=== PATIENT | female | born 1970 | race Caucasian/White ===

== ENCOUNTER 2017-02-06 12:12 | Emergency (ER) | payer OTHER ==
[2017-02-06 12:24] VITALS: TEMP 98.1
--- NOTE | 2017-02-06 13:02 | EDPHY ---
H & P Stated Complaint: Tripped while hiking;obvious deformity L wrist Source: Patient Exam Limitations: No limitations - Personal History LMP (Females 10-55): 15-21 Days Ago Current Tetanus Diphtheria and Acellular Pertussis (TDAP): Yes - Medical/Surgical History Other PMH: MS - Social History Smoking Status: Never smoked Time Seen by Provider: 02/06/17 13:01 HPI/ROS: HPI: This is a 46-year-old female who presents with Chief Complaint:Tripped while hiking;obvious deformity L wrist Location: Left wrist Quality: injury Duration: 5 hours prior to arrival Signs and Symptoms: No bleeding, no radiation, no numbness, no weakness, no tingling, no incontinence, + decreased range of motion Timing: Acute Severity: 02/05 Context: Patient has a history of multiple sclerosis was hiking and while walking down hill, slipped on the gravel, and fell forward landing on her left wrist with immediate pain, feeling of a popping sensation and deformity noted to her left wrist. She had a hike [place] the mountain and drive herself to the ER which took 5 hours. She does not drink any water in this time. She complains of severe constant nonradiating pain in her left wrist. She denies any paresthesias/ numbness/discoloration of finger in her left hand. She is not on any blood thinners. Denies hitting her head/LOC/neck pain. Modifying Factors: None Comment: ROS: see HPI Constitutional: No fever, no chills, no weight loss Eyes: No blurred vision Respiratory: No shortness of breath, no cough Cardiovascular: No chest pain Gastrointestinal: No nausea, no vomiting no diarrhea Genitourinary: No dysuria Extremities: No myalgias Neurologic: No weakness, no numbness Skin: No rashes Hematologic: No bruising, no bleeding MEDICAL/SURGICAL/SOCIAL HISTORY: Social history: Unemployed. CONSTITUTIONAL: Pleasant, petite white adult female, awake and alert, no obvious distress HEENT: Atraumatic and normocephalic, PERRL, EOMI. no globe entrapment, no raccoon eyes. no Gutierrez signs.Tympanic membranes clear. No tympanic membrane rupture. Nares patent; no septal hematoma. Oropharynx clear, no exudate and moist pink mucosa. No malocclusion. no dental trauma. Airway patent. No lymphadenopathy. NECK: supple, no midline tenderness, flexion 45 degrees, extension 45 degrees, right and left lateral flexion 45 degrees. No meningismus. Cardiovascular: Normal S1/S2, regular rate, regular rhythm, without murmur rub or gallop. PULMONARY/CHEST: Symmetrical and nontender. no crepitus. Clear to auscultation bilaterally. Good air movement. No accessory muscle usage. ABDOMEN: Soft, nondistended, nontender, no ecchymosis, no rebound, no guarding , no peritoneal signs, no masses or organomegaly. No CVAT. PELVIC: no pain with rocking; bilateral hips flexion 125 degrees, extension 30 degrees, with no pain internal rotation and no pain external rotation. BACK: No midline tenderness, no paraspinous spasm, deep tendon reflexes 2/2, no pain with straight leg raise EXTREMITIES: 2/2 pulses, left wrist flexion deformity noted; tenderness over the radial styloid and ulnar styloid. Scaphoid tenderness noted. Able to wiggle all 5 fingers with mild decreased light touch sensation of fingers. no clubbing, no cyanosis or edema. NEUROLOGICAL: no focal neuro deficits. GCS 15. SKIN: Warm and dry, no erythema. no rash. Good capillary refill. (Caroline Farris) Constitutional: Initial Vital Signs Temperature (C) 36.7 C 02/06/17 12:20 Heart Rate 92 02/06/17 12:20 Respiratory Rate 22 H 02/06/17 12:20 Blood Pressure 130/78 H 02/06/17 12:20 O2 Sat (%) 97 02/06/17 12:20 O2 Delivery Mode [Procedural Non-Rebreather Mask 1st] O2 Delivery Mode [.Immediate Non-Rebreather Mask Pre-Procedure] O2 Delivery Mode Room Air O2 (L/minute) [Procedural 1st] 15 O2 (L/minute) [.Immediate Pre- 15 Procedure] Allergies/Adverse Reactions: Penicillins Allergy (Mild, Verified 02/06/17 12:24) Rash Home Medications: Medication Instructions Recorded Gabapentin [Neurontin 100 MG (*)] 100 mg PO HS 02/06/17 oxyCODONE/APAP 5/325 [Percocet 1 - 2 tab PO Q4H PRN #20 tab 02/06/17 5/325 (*)] Medical Decision Making Procedures: Procedure: Splint placement. A sugar-tong splint was applied. After application of the splint I returned and re-examined the patient. The splint was adequately immobilizing the joint and distal to the splint the patient's circulation and sensation was intact. Procedure: Procedural sedation. Indication: Fracture reduction. A pre-sedation evaluation was completed on the patient just prior to the procedure. Patient is an appropriate candidate for procedural sedation with a normal 3-3-2 rule assessment and a Mallampati airway score of class 1. The risks of the sedation were discussed including but not limited to dysrhythmia, need for airway intervention or general anesthesia, disability, ; and verbal consent obtained. A timeout was observed and patient's identity confirmed. The patient was sedated with ketamine and propofol. The patient was monitored with continuous pulse oximetry, capnography, and campus monitor. There were no complications and no significant hypoxemia. I remained at the bedside for the sedation. The total time I spent in the procedural sedation was 16 minutes. The patient's left wrist fracture was reduced with conscious sedation and traction. Good alignment seen on C-arm and splinted in place. Procedure performed by me. (Henok Mahoney) ED Course/Re-evaluation: X-rays taken and show per my read minimally displaced multiple fractures in the distal radius, ulnar fracture as well as dislocation Patient given IV Dilaudid and IV Zofran. 1330: Notified attending. Patient was moved to [facility] for conscious sedation. She reports no history of having difficulty with anesthesia. ASA class 1. 1415: Dr. Mahoney successfully reduced the dislocation, C-arm showed good reduction and placement and splint applied No signs of neurovascular compromise/tenting of skin/compartment syndrome/ extremities and joints examined above and below area of concern and are neurovascularly intact. (Caroline Farris) Differential Diagnosis: Differential diagnosis includes but is not limited to dislocation, fracture, nerve injury, tendon injury. (Caroline Farris) - Data Points Medications Given: Discontinued Medications Hydromorphone HCl (Dilaudid) 1 mg IVP Q2HRS PRN PRN Reason: Pain, Severe Unable to Take PO Last Admin: 02/06/17 13:15 Dose: 1 mg Sodium Chloride (Ns) 1,000 mls @ 0 mls/hr IV EDNOW ONE; Wide Open PRN Reason: Protocol Stop: 02/06/17 13:05 Last Admin: 02/06/17 13:14 Dose: 1,000 mls Ketamine HCl (Ketamine) 50 mg IVP EDNOW ONE Stop: 02/06/17 14:24 Last Admin: 02/06/17 14:58 Dose: 50 mg Ondansetron HCl (Zofran) 4 mg IVP Q15M PRN PRN Reason: Nausea/Vomiting, Can't Take PO Last Admin: 02/06/17 13:15 Dose: 4 mg Propofol (Diprivan) 30 mg IVP EDNOW ONE Stop: 02/06/17 14:25 Last Admin: 02/06/17 14:58 Dose: 30 mg Departure - Departure Disposition: Home, Routine, Self-Care Clinical Impression: Left wrist dislocation, Distal radius fracture, left, Ulna styloid fracture, closed Condition: Good Instructions: Wrist Fracture in Adults (ED), Finger Dislocation (ED), Scaphoid Fracture (ED) Additional Instructions: Keep the splint in place and dry until seen by Orthopedics. Follow up with Orthopedics in 3-5 days at which time they will evaluate and recommend with you if conservative management versus surgery is indicated. Referrals: Hubert Boyer MD [Medical Doctor] - As per Instructions Prescriptions: oxyCODONE/APAP 5/325 [Percocet 5/325 (*)] 1 - 2 tab PO Q4H PRN #20 tab PRN Reason: Pain, Severe
[2017-02-06] MEDS ORDERED: HYDROmorphONE/DILAUDID 1 MG/ML INJ IVP PRN (13:04)
[2017-02-06] MEDS ORDERED: ONDANSETRON 4 MG/2 ML VIAL IVP PRN (13:04)
[2017-02-06] MEDS ORDERED: NS 1,000 ML IV ONE (13:04)
[2017-02-06] MEDS ORDERED: KETAMINE 100 MG/10 ML SYR ONE (14:02)
[2017-02-06] MEDS ORDERED: PROPOFOL 200 MG/20 ML VIAL ONE (14:03)
[2017-02-06] MEDS ORDERED: KETAMINE 100 MG/10 ML SYR IVP ONE (14:23)
[2017-02-06] MEDS ORDERED: PROPOFOL 200 MG/20 ML VIAL IVP ONE (14:24)
[2017-02-06 14:50] VITALS: RESP 18
[2017-02-06 16:32] VITALS: BP 144/80; PULSE 79; O2SAT 97
== END 2017-02-06 16:27 | disposition home or self-care (01) ==
PROC: 0PSJXZZ Reposition Left Radius, External Approach (ICD-10-PCS; principal; 2017-02-06)
PROC: 0PSLXZZ Reposition Left Ulna, External Approach (ICD-10-PCS; principal; 2017-02-06)
DX: S52.572A Other intraarticular fracture of lower end of left radius, initial encounter for closed fracture (principal); S52.612A Displaced fracture of left ulna styloid process, initial encounter for closed fracture; E86.9 Volume depletion, unspecified; W01.0XXA Fall on same level from slipping, tripping and stumbling without subsequent striking against object, initial encounter; Y92.828 Other wilderness area as the place of occurrence of the external cause; Y99.8 Other external cause status; Y93.01 Activity, walking, marching and hiking
CPT/HCPCS: 96374; A4565; J1170; J2405; J2704

== ENCOUNTER → 2017-07-10 | Outpatient (CLI) | payer OTHER | LOC: FIMAGING 11:56 | PROVIDERS: ATTEND Internal Medicine | DX: Z12.31 Encounter for screening mammogram for malignant neoplasm of breast (principal); Z13.820 Encounter for screening for osteoporosis; M85.89 Other specified disorders of bone density and structure, multiple sites; N95.8 Other specified menopausal and perimenopausal disorders; Z79.52 Long term (current) use of systemic steroids ==

== ENCOUNTER → 2018-08-19 | Outpatient (CLI) | payer OTHER | LOC: FIMAGING 12:36 | PROVIDERS: ATTEND Internal Medicine | DX: Z12.31 Encounter for screening mammogram for malignant neoplasm of breast (principal) ==